=== PATIENT | male | born 1995 ===

== ENCOUNTER 2021-12-19 01:52 | Day surgery (SDC) ==
[2021-12-19] MEDS ORDERED: Ketorolac Tromethamine 30 MG/ML VIAL ONE (02:08)
[2021-12-19] MEDS ORDERED: Midazolam HCl 2 mg/2 ml Vial ONE (02:52)
[2021-12-19] MEDS ORDERED: fentaNYL Citrate/PF 100 MCG/2 ML SYRINGE ONE (02:53)
[2021-12-19] MEDS ORDERED: Bupivacaine 0.25% HCL 30 ML VIAL ONE (02:59)
[2021-12-19 03:12] LABS: ALT (SGPT) 15 U/L (8-55); AST (SGOT) 15 U/L (5-34); Albumin 4.5 g/dL (3.5-5.0); Alkaline Phosphatase 99 U/L (40-110); Anion Gap 12 mmol/L (10-20); BUN (Urea Nitrogen) 9 mg/dL (8.9-20.6); Bilirubin, Total 0.5 mg/dL (0.2-1.2); Calc. Creatinine Clearance 0 mL/min (70-130); Calcium 9.7 mg/dL (7.8-10.44); Carbon Dioxide 29 mmol/L (22-29); Chloride 102 mmol/L (98-107); Globulin 3.3 g/dL (2.4-3.5); Glucose 126 mg/dL (70-105); Potassium 4.3 mmol/L (3.5-5.1); Protein, Total 7.8 g/dL (6.0-8.3); Sodium 139 mmol/L (136-145)
[2021-12-19 03:26] LABS: #Eosinphils 0.2 thou/uL (0.0-0.7); #Lymphocytes 1.3 thou/uL (1.20-3.40); #Monocytes 0.6 thou/uL (0.11-0.59); %Basophils 0.4 % (0.0-1.0); %Eosinophils 2.1 % (0.0-10.0); %Lymphocytes 14.2 % (21.0-51.0); %Monocytes 6.4 % (0.0-10.0); Hemoglobin 16.1 g/dL (14.0-18.0); Mean Corpuscular HGB CONC 33.9 g/dL (32.0-36.0); Mean Corpuscular Hemoglobin 31.2 pg (27.0-31.0); Mean Corpuscular Volume 92.1 fL (78.0-98.0); Mean Platelet Volume 7.9 fL (7.4-10.4); Platelet Count 197 thou/uL (130-400); RBC Distribution Width 11.9 % (11.5-14.5); Red Blood Cell (RBC) Count 5.16 mill/uL (4.70-6.10); White Blood Cell (WBC) Count 9.1 thou/uL (4.8-10.8)
[2021-12-19] MEDS ORDERED: Ondansetron PF 4 MG/2 ML Vial ONE (03:33)
[2021-12-19] MEDS ORDERED: Dexamethasone 20 MG/5 ML VIAL ONE (03:33)
[2021-12-19] MEDS ORDERED: PROPOFOL 200 MG/20 ML VIAL ONE (03:33)
[2021-12-19] MEDS ORDERED: Succinylcholine 200 MG/10 ml SYRINGE FS ONE (03:33)
[2021-12-19] MEDS ORDERED: Lidocaine 1% PF 5 ML VIAL ONE (03:33)
[2021-12-19] MEDS ORDERED: Promethazine HCl 25 MG/ML VIAL IM PRN (03:59)
[2021-12-19] MEDS ORDERED: Ondansetron HCl/PF 4 MG/2 ML Vial IVP PRN (03:59)
[2021-12-19] MEDS ORDERED: Promethazine HCl 25 MG/ML VIAL IVPB PRN (03:59)
[2021-12-19] MEDS ORDERED: Bacitracin Zinc Ointment 30 gm TUBE ONE (04:28)
[2021-12-19 04:49] LABS: SARS-CoV-2 NAA Rapid Test Not Detected (NotDetected)
== END 2021-12-19 06:07 | disposition home or self-care (01) ==
LOC: ERS 01:52 → SDC/OP 03:53
PROVIDERS: ATTEND Urology
PROC: 0VS90ZZ Reposition Right Testis, Open Approach (ICD-10-PCS; principal; 2021-12-19)
DX: N44.04 Torsion of appendix epididymis (principal); Z20.822 Contact with and (suspected) exposure to COVID-19
CPT/HCPCS: 36415; 76870; 80053; 85025; 93976; 96372; J1100; J1885; J2250; J2405; J2704; S0020; U0002